=== PATIENT | male | born 2000 | race Hispanic/Latino ===

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

== ENCOUNTER 2022-08-24 10:24 | Emergency (ER) | payer OTHER ==
[2022-08-24] MEDS ORDERED: Lidocaine 1% PF 5 ML VIAL ONE (10:37)
[2022-08-24] MEDS ORDERED: Boostrix 0.5 ML (Tdap) VIAL (>/=7 yrs of age) ONE (11:09)
== END 2022-08-24 11:20 | disposition home or self-care (01) ==
LOC: BURERS 10:24
DX: S01.311A Laceration without foreign body of right ear, initial encounter (principal); W26.8XXA Contact with other sharp object(s), not elsewhere classified, initial encounter; Z23 Encounter for immunization
CPT/HCPCS: 12011; 90471; 90715